=== PATIENT | male | born 1955 | race Caucasian/White ===

== ENCOUNTER 2021-05-08 14:01 | Outpatient (REF) | payer OTHER, SELFPAY | END 2021-05-08 14:02 | disposition home or self-care (01) | LOC: HO.LAB 14:01 | PROVIDERS: Visit Provider Nurse Practitioner Family | DX: Z20.822 Contact with and (suspected) exposure to COVID-19 (principal); J32.9 Chronic sinusitis, unspecified | CPT/HCPCS: U0003; U0005 ==

== ENCOUNTER 2024-06-10 09:18 | Outpatient (AMB) | payer MEDICARE, SELFPAY ==
--- NOTE | 2024-06-10 09:22 | MHC.OFFWIV ---
Intake Vital Signs 06/10/24 09:23 Height 6 ft 1 in Weight 219 lb BMI 28.9 BP 138/72 Blood Pressure Location Lt brachial Position Sitting Pulse 74 Pulse Source Pulse Oximeter Temp 97.7 F Temp Source Oral Pulse Oximetry (%) 97 Oxygen Delivery Method Room Air Intake Visit Reasons: [employer]IST- Scrape not healing on top of RT foot Intake Note: pt c/o scrape on RT foot. Not healing. 2 weeks ago Patient Tobacco Use Status: Never used Tobacco Allergies No Known Allergies Allergy (Verified 06/10/24 09:22) Do you need a note to return to daycare/school/sports/work: No HPI [employer]IST- Scrape not healing on top of RT foot HPI Details This note is constructed using voice recognition software. While every effort has been made to ensure accuracy, maintenance inspector errors may have been included. The patient is a 69 year old male who presents to the clinic today with nonhealing wound on right foot. He notes that about a week and a half ago he scratched the top of his right foot with the bottom of his left foot and ended up with 3 deep scratches. He has been cleaning the area, applying a Band-Aid every day, allowing it to breathe at night, and adding Neosporin to the wound bed. [facility] Social History Patient Tobacco Use Status: Never used Tobacco Review of Systems Const All systems reviewed & are unremarkable except as noted in HPI and below Physical Exam Vital Signs: Last Vital Signs Temp 97.7 F 06/10/24 09:23 Pulse 74 06/10/24 09:23 BP 138/72 06/10/24 09:23 Pulse Ox 97 06/10/24 09:23 Oxygen Delivery Method Room Air 06/10/24 09:23 BMI result Body Mass Index 28.9 Const General: cooperative, healthy appearing, comfortable, no acute distress and well developed Orientation/consciousness: patient oriented x3 Limitations: no limitations Resp Effort & Inspection: normal respiratory effort and able to speak in complete sentences Skin Other: Linear excoriation to right foot on top, x3. Wound beds beefy red, no surrounding erythema, clear discharge minimal amount, no warmth, no odor. Neuro General: patient oriented x3 Assessment & Plan Assessment & Plan (1) Skin excoriation: Code(s): T14.8XXA - Other injury of unspecified body region, initial encounter Plan: Advised patient to keep area clean, dry, and allowed to breathe when possible. No signs of secondary bacterial infection, appears to be healing well. Advised patient to follow up with erythematous streaking, warmth, change in discharge. Advised avoidance of application of Neosporin as it is not likely facilitating resolution of his wound. Plan See above for full details and plan. Coding Level of Care Code New Pt Level 3 (51798) Diagnoses Skin excoriation T14.8XXA
[2024-06-10 09:23] VITALS: BP 138/72; PULSE 74; TEMP 36.5; O2SAT 97; BMI 28.9
== END 2024-06-10 09:48 | disposition home or self-care (01) ==
PROVIDERS: PCP Internal Medicine; Visit Provider Registered Nurse
DX: T14.8XXA Other injury of unspecified body region, initial encounter (principal)
CPT/HCPCS: 99203